=== PATIENT | female | born 1960 | race Caucasian/White ===

== ENCOUNTER 2018-11-02 16:40 | Emergency (ER) | payer BC, OTHER ==
[~2018-11-02] VITALS: Ht 160 cm; Wt 62.1 kg
[~2018-11-02 16:40] MED LIST: ESCI5TAB PO; ESTR0.5T4 PO
[2018-11-02 17:44] VITALS: BP 119/86
--- NOTE | 2018-11-02 17:45 | NUR ---
Patient discharged to home in stable conditon. Written and verbal after care instructions given. Patient verbalizes understanding of instructions.
== END 2018-11-02 17:47 | disposition home or self-care (01) ==
LOC: ER 16:41
DX: S20.211A Contusion of right front wall of thorax, initial encounter (principal); Z79.899 Other long term (current) drug therapy; W10.8XXA Fall (on) (from) other stairs and steps, initial encounter; Y93.89 Activity, other specified; Y92.89 Other specified places as the place of occurrence of the external cause; Y99.8 Other external cause status
CPT/HCPCS: 71101; A4663